=== PATIENT | male | born 1985 | race Caucasian/White ===

== ENCOUNTER 2019-09-12 18:45 | Emergency (ER) | payer MEDICAID ==
--- NOTE | 2019-09-12 19:51 | EDM.PDOC ---
ED HPI GENERAL MEDICAL PROBLEM - General Chief Complaint: Gastrointestinal Problem Stated Complaint: POSSIBLE CHOKING Time Seen by Provider: 09/12/19 19:40 Source of Information: Reports: Patient History Limitations: Reports: No Limitations - History of Present Illness INITIAL COMMENTS - FREE TEXT/NARRATIVE: 33-year-old male swallowed a cinnamon gummy bear earlier this evening and it got stuck for 5-10 minutes, causing an irritation in his throat. It now seems to be resolved but he googled it and thought he should have it checked out. No respiratory symptoms at all. Onset: Sudden Duration: Hour(s): (1 hour ago) Location: Reports: Other (Throat) Associated Symptoms: Reports: No Other Symptoms - Related Data Allergies Allergy/AdvReac Type Severity Reaction Status Date / Time No Known Allergies Allergy Verified 09/12/19 19:14 Home Meds: Home Meds NK [No Known Home Meds] 11/14/13 [History] Past Medical History - Past Health History Medical/Surgical History: Denies Medical/Surgical History Social & Family History - Tobacco Use Smoking Status *Q: Never Smoker - Caffeine Use Caffeine Use: Reports: Soda - Recreational Drug Use Recreational Drug Use: No ED ROS GENERAL - Review of Systems Review Of Systems: See Below Constitutional: Denies: Fever, Chills Respiratory: Denies: Shortness of Breath GI/Abdominal: Denies: Nausea, Vomiting Skin: Reports: No Symptoms Neurological: Reports: No Symptoms ED EXAM, GI/ABD - Physical Exam Exam: See Below Exam Limited By: No Limitations General Appearance: Alert, No Apparent Distress Throat/Mouth: Normal Inspection Head: Atraumatic Neck: Supple, Non-Tender Respiratory/Chest: No Respiratory Distress, Lungs Clear Course - Vital Signs Last Recorded V/S: Last Vital Signs Temp 98.1 F 09/12/19 19:14 Pulse 96 09/12/19 19:14 Resp 18 09/12/19 19:14 BP 133/79 09/12/19 19:14 Pulse Ox 100 09/12/19 19:14 - Re-Assessments/Exams Free Text/Narrative Re-Assessment/Exam: 09/12/19 19:49 Patient was reassured that he may have a little irritation in his throat for the next day or 2 but there is no foreign body, no obstruction, he can resume his diet as tolerated. Departure - Departure Time of Disposition: 19:57 Disposition: Home, Self-Care 01 Clinical Impression: Sore throat Esophagus, foreign body Qualifiers: Encounter type: initial encounter Qualified Code(s): T18.108A - Unspecified foreign body in esophagus causing other injury, initial encounter - Discharge Information Instructions: Swallowed Foreign Body, Adult Referrals: PCP,None [Primary Care Provider] - Forms: ED Department Discharge Care Plan Goals: Resume regular diet as tolerated, lots of liquids and recheck in 2-3 days if not improving satisfactorily.
== END 2019-09-12 19:57 | disposition home or self-care (01) ==
LOC: JP.ED 18:45
DX: T18.128A Food in esophagus causing other injury, initial encounter (principal); J02.9 Acute pharyngitis, unspecified
CPT/HCPCS: 99282

== ENCOUNTER 2022-04-24 20:25 | Emergency (ER) | payer MEDICAID ==
[2022-04-24] MEDS ORDERED: Ondansetron 4 MG/2 ML SDV IVPUSH ONE (20:44)
== END 2022-04-24 21:28 | disposition home or self-care (01) ==
LOC: JP.ED 20:25
DX: R06.4 Hyperventilation (principal); E86.0 Dehydration
CPT/HCPCS: 96374; 99282; 99284; J2405

== ENCOUNTER 2022-07-21 01:33 | Emergency (ER) | payer MEDICAID ==
[2022-07-21 02:24] LABS: ESTIMATED GFR 79 mL/min (>60)
== END 2022-07-21 03:30 | disposition home or self-care (01) ==
LOC: JP.ED 01:33
DX: F41.1 Generalized anxiety disorder (principal); R06.4 Hyperventilation
CPT/HCPCS: 36415; 80053; 80305-QW; 81001; 85025; 93005; 99284

== ENCOUNTER 2023-01-25 23:42 | Emergency (ER) | payer MEDICAID ==
[2023-01-25] MEDS ORDERED: LORazepam 2 MG/ML SDV IVPUSH ONE (23:45)
== END 2023-01-26 00:52 | disposition home or self-care (01) ==
LOC: JP.ED 23:42
DX: F41.9 Anxiety disorder, unspecified (principal); Z86.16 Personal history of COVID-19
CPT/HCPCS: 80305-QW; 96374; 99282; 99283-25; J2060

== ENCOUNTER 2023-03-25 23:38 | Emergency (ER) | payer MEDICAID ==
[2023-03-26] MEDS ORDERED: Ondansetron 4 MG/2 ML SDV IVPUSH ONE (00:32)
[2023-03-26] MEDS ORDERED: Sodium Chloride 0.9% 500 ML IV ONE (00:33)
[2023-03-26] MEDS ORDERED: Sodium Chloride 0.9% 10 ML Syringe FLUSH PRN (00:33)
[2023-03-26] MEDS ORDERED: Pantoprazole 40 MG Vial IVPUSH ONE (00:35)
[2023-03-26 00:47] LABS: BASOPHILS ABSOLUTE AUTO 0.03 K/uL (0.00-0.10); BASOPHILS PERCENT AUTO 0.3 % (0.1-1.3); EOSINOPHILS ABSOLUTE AUTO 0.11 K/uL (0.00-0.40); EOSINOPHILS PERCENT AUTO 0.9 % (0.0-5.4); HEMATOCRIT 45.8 % (38.4-49.7); HEMOGLOBIN 15.6 g/dL (12.9-16.9); IMMATURE GRAN ABSOLUTE AUTO 0.03 K/uL (0.00-0.23); IMMATURE GRAN PERCENT AUTO 0.3 % (0.0-0.7); LYMPHOCYTES ABSOLUTE AUTO 0.79 K/uL (0.8-3.3); LYMPHOCYTES PERCENT AUTO 6.8 % (11.4-47.7); MEAN CORPUSCULAR HEMOGLOBIN 29.1 pg (31.6-35.5); MEAN CORPUSCULAR HGB CONC 34.1 g/dL (31.6-35.5); MEAN CORPUSCULAR VOLUME 85.4 fL (81.4-99.0); MONOCYTES PERCENT AUTO 8.6 % (3.3-12.6); NEUTROPHILS ABSOLUTE AUTO 9.71 K/uL (1.0-7.6); NEUTROPHILS PERCENT AUTO 83.1 % (40.0-78.1); PLATELET COUNT,PLT 263 K/uL (130-375); RED BLOOD CELL COUNT 5.36 M/uL (4.14-5.76); WHITE BLOOD CELL COUNT,WBC 11.7 K/uL (3.2-11.0)
[2023-03-26 01:09] LABS: A/G RATIO 1.1 (1.2-2.2); ALANINE AMINOTRANSFERASE,ALT 44 U/L (12-78); ALBUMIN 4.1 g/dL (3.4-5.0); ALKALINE PHOSPHATASE 85 U/L (46-116); ASPARTATE AMNIOTRANSFERASE,AST 27 U/L (15-37); BILIRUBIN TOTAL 0.9 mg/dL (0.2-1.0); BLOOD UREA NITROGEN,BUN 27 mg/dL (7-18); CALCIUM 9.1 mg/dL (8.5-10.1); CARBON DIOXIDE,CO2 28 mmol/L (21-32); CHLORIDE,CL 101 mmol/L (100-108); EST CRCL DRUG DOSING (CG) 80.94 mL/min; ESTIMATED GFR 98 mL/min (>60); GLUCOSE RANDOM 162 mg/dL (74-106); POTASSIUM,K 3.8 mmol/L (3.6-5.2); SODIUM,NA 137 mmol/L (140-148)
[2023-03-26 01:10] LABS: ANION GAP 11.8 mmol/L (5.0-14.0)
== END 2023-03-26 01:40 | disposition home or self-care (01) ==
LOC: JP.ED 23:38
DX: A05.9 Bacterial foodborne intoxication, unspecified (principal); Z86.16 Personal history of COVID-19
CPT/HCPCS: 36415; 80053; 85025; 96374; 96375; 99283; 99284; C9113; J2405; J7040